=== PATIENT | female | born 1955 | race Caucasian/White ===

== ENCOUNTER → 2016-05-19 | Outpatient (CLI) | payer BC ==
[2016-05-22 15:14] LABS: COPPER 0.95 mcg/mL
== END ==
LOC: LAB 10:18
PROVIDERS: ATTEND Naturopath
DX: R79.0 Abnormal level of blood mineral (principal); F41.9 Anxiety disorder, unspecified; F32.9 Major depressive disorder, single episode, unspecified; R63.0 Anorexia; R53.83 Other fatigue
CPT/HCPCS: 36415; 82390; 82525

== ENCOUNTER → 2016-07-07 | Outpatient (CLI) | payer BC ==
[~2016-07-07] MED LIST: BISA5TAB PO; BUSP30TA2 PO; CHOL100092 PO; FLAX100031 PO; GING250C PO; GLUC-12 PO; HYDR-3775 PO; LVT.05T PO; MAGN500C4 PO; MIRT15TA98 PO; ONDAN4ODT PO; SERT100T8 PO; VITA100033 PO; VITA1CAP PO
== END ==
LOC: LAB 09:27
PROVIDERS: ATTEND Family Medicine
DX: E07.9 Disorder of thyroid, unspecified (principal); F32.9 Major depressive disorder, single episode, unspecified; F41.9 Anxiety disorder, unspecified; R63.0 Anorexia
CPT/HCPCS: 36415; 84439; 84443; 84481; 84482